=== PATIENT | male | born 1960 | race African-American/Black ===

== ENCOUNTER 2025-09-04 23:44 | Inpatient (IN) | payer OTHER ==
[2025-09-05 01:00] LABS: #Basophils 0.03 10x3/uL (0.0-0.2); #Eosinophils 0.29 10x3/uL (0.0-0.5); #Monocytes 0.54 10x3/uL (0.0-1.1); #Neutrophils 1.83 10x3/uL (1.5-8.4); %Basophils 0.5 % (0.0-2.0); %Eosinophils 4.9 % (0.0-6.0); %Lymphocytes 54.2 % (18.0-47.0); %Monocytes 9.2 % (0.0-10.0); %Neutrophils 31.0 % (40.0-75.0); Hematocrit 37.9 % (38.8-50.0); Hemoglobin 13.5 g/dL (13.5-17.5); Mean Corpuscular Hemoglobin 32.1 pg (27.0-33.0); Mean Corpuscular Volume 90.2 fL (81.2-95.1); Platelet Count 253 10x3/uL (150-450); Red Blood Cell (RBC) Count 4.20 10x6/uL (4.32-5.72); White Blood Cell (WBC) Count 5.90 10x3/uL (3.5-10.5)
[2025-09-05 01:18] LABS: ALT (SGPT) 20 U/L (Less than 45); AST (SGOT) 22 U/L (11-34); Albumin 4.1 g/dL (3.1-4.5); Alkaline Phosphatase 133 U/L (40-110); Anion Gap 16 mmol/L (10-20); BUN (Urea Nitrogen) 34 mg/dL (8.4-25.7); Bilirubin, Total 0.3 mg/dL (0.3-1.2); Calc. Creatinine Clearance 0 mL/min (70-130); Calcium 9.1 mg/dL (7.8-10.44); Carbon Dioxide 22 mmol/L (23-31); Chloride 95 mmol/L (98-107); Globulin 4.0 g/dL (2.4-3.5); Potassium 4.2 mmol/L (3.5-5.1); Sodium 129 mmol/L (136-145)
[2025-09-05 01:25] LABS: Glucose 443 mg/dL (80-115); Troponin I 0.025 ng/mL (< 0.028)
[2025-09-05 03:23] LABS: Troponin I 0.026 ng/mL (< 0.028)
[2025-09-05] MEDS ORDERED: Glucagon 1 MG/ML KIT IM PRN (03:35)
[2025-09-05] MEDS ORDERED: Dextrose 50% Abboject 50 ML SYRINGE SLOW IVP PRN (03:35)
[2025-09-05 03:49] VITALS: BMI 30.4
[2025-09-05] MEDS ORDERED: Ventolin HFA Inhaler 60 PUFF INHALER INH PRN (03:52)
[2025-09-05] MEDS: Nitroglycerin 2% Ointment 1 INCH/1 GM Packet TOP SCH (04:03)
[2025-09-05 06:25] LABS: Anion Gap 11 mmol/L (10-20); BUN (Urea Nitrogen) 31 mg/dL (8.4-25.7); Calc. Creatinine Clearance 62 mL/min (70-130); Calcium 8.4 mg/dL (7.8-10.44); Carbon Dioxide 28 mmol/L (23-31); Cardiac Risk 6.0 (Less than 4.5); Chloride 98 mmol/L (98-107); Cholesterol 186 mg/dl (< 200 Desired); Glucose 314 mg/dL (80-115); HDL Cholesterol 31 mg/dL (>60 Neg Risk); LDL Cholesterol, Calculated 81 mg/dL; Magnesium 2.2 mg/dL (1.6-2.6); Potassium 3.4 mmol/L (3.5-5.1); Sodium 134 mmol/L (136-145); Triglycerides 368 mg/dL (Less than 150)
[2025-09-05 06:32] LABS: Troponin I 0.030 ng/mL (< 0.028)
[2025-09-05] MEDS: Aspirin Chewable 81 MG TAB PO SCH (08:43)
[2025-09-05] MEDS: Ipratropium Bromide 2.5 ml Neb NEB SCH (08:43)
[2025-09-05] MEDS: metFORMIN 500 MG TAB PO SCH (08:43)
[2025-09-05] MEDS: Enoxaparin 40 MG (0.4 mL) SYRINGE SC SCH (08:44)
[2025-09-05] MEDS: Losartan 25 MG TAB PO SCH (09:49)
[2025-09-05] MEDS: DULoxetine 30 MG CAP PO SCH (20:43)
[2025-09-06 03:54] LABS: #Basophils 0.05 10x3/uL (0.0-0.2); #Eosinophils 0.31 10x3/uL (0.0-0.5); #Monocytes 0.66 10x3/uL (0.0-1.1); #Neutrophils 2.14 10x3/uL (1.5-8.4); %Basophils 0.8 % (0.0-2.0); %Eosinophils 4.7 % (0.0-6.0); %Lymphocytes 51.3 % (18.0-47.0); %Monocytes 10.1 % (0.0-10.0); %Neutrophils 32.8 % (40.0-75.0); Hematocrit 37.3 % (38.8-50.0); Hemoglobin 13.1 g/dL (13.5-17.5); Mean Corpuscular Hemoglobin 32.5 pg (27.0-33.0); Mean Corpuscular Volume 92.6 fL (81.2-95.1); Platelet Count 271 10x3/uL (150-450); Red Blood Cell (RBC) Count 4.03 10x6/uL (4.32-5.72); White Blood Cell (WBC) Count 6.53 10x3/uL (3.5-10.5)
[2025-09-06 04:24] LABS: Anion Gap 14 mmol/L (10-20); BUN (Urea Nitrogen) 26 mg/dL (8.4-25.7); Calc. Creatinine Clearance 56 mL/min (70-130); Calcium 9.3 mg/dL (7.8-10.44); Carbon Dioxide 25 mmol/L (23-31); Chloride 104 mmol/L (98-107); Glucose 172 mg/dL (80-115); Potassium 3.9 mmol/L (3.5-5.1); Sodium 139 mmol/L (136-145)
[2025-09-06] MEDS: Losartan 25 MG TAB PO SCH (08:42)
[2025-09-07 04:38] LABS: Anion Gap 12 mmol/L (10-20); BUN (Urea Nitrogen) 27 mg/dL (8.4-25.7); Calc. Creatinine Clearance 60 mL/min (70-130); Calcium 9.8 mg/dL (7.8-10.44); Carbon Dioxide 25 mmol/L (23-31); Chloride 106 mmol/L (98-107); Glucose 196 mg/dL (80-115); Potassium 4.1 mmol/L (3.5-5.1); Sodium 139 mmol/L (136-145)
[2025-09-07] MEDS: Losartan 25 MG TAB PO SCH (17:17)
[2025-09-08] MEDS: Losartan 50 MG TAB PO SCH (08:36)
[2025-09-08 13:11] VITALS: BP 178/93; TEMP 98.5
== END 2025-09-08 13:20 | DRG 305 ==
LOC: EEVIPCON 23:44 → CSHERS 23:44 → CSHTELE 09-05 02:48 → INTOOBSV 09-05 02:48 → OBSVTOIN 09-06 12:38
PROVIDERS: ADMIT Family Medicine; ATTEND Internal Medicine
DX: I16.0 Hypertensive urgency (principal); E87.1 Hypo-osmolality and hyponatremia; I50.32 Chronic diastolic (congestive) heart failure; I13.0 Hypertensive heart and chronic kidney disease with heart failure and stage 1 through stage 4 chronic kidney disease, or unspecified chronic kidney disease; E78.5 Hyperlipidemia, unspecified; I25.10 Atherosclerotic heart disease of native coronary artery without angina pectoris; J44.9 Chronic obstructive pulmonary disease, unspecified; Z86.73 Personal history of transient ischemic attack (TIA), and cerebral infarction without residual deficits; Z21 Asymptomatic human immunodeficiency virus [HIV] infection status; K21.9 Gastro-esophageal reflux disease without esophagitis; M19.90 Unspecified osteoarthritis, unspecified site; Z98.890 Other specified postprocedural states; Z88.2 Allergy status to sulfonamides; Z87.891 Personal history of nicotine dependence; Z88.6 Allergy status to analgesic agent; E11.22 Type 2 diabetes mellitus with diabetic chronic kidney disease; Z79.4 Long term (current) use of insulin; N18.32 Chronic kidney disease, stage 3b; F32.4 Major depressive disorder, single episode, in partial remission; E11.65 Type 2 diabetes mellitus with hyperglycemia
CPT/HCPCS: 36415; 36416; 71045; 80048; 80053; 80061; 82010; 83036; 83735; 83880; 84484; 85025; 93005; 93010; 93306; 94640; 94760; 96372; 96374; 96376; G0378; J1650; J1815; J7030; J7644